=== PATIENT | male | born 1955 | race Caucasian/White ===

== ENCOUNTER 2022-11-19 08:57 | Day surgery (SDC) | payer MEDICARE ==
[~2022-11-19] VITALS: Ht 180.3 cm; Wt 82.2 kg
[2022-11-19] MEDS ORDERED: OMEP40CA21 PO (09:34)
[2022-11-19] MEDS ORDERED: KEYTRUDA IV (09:34)
[2022-11-19 10:00] VITALS: BP 160/95; PULSE 60; RESP 16; TEMP 98.8; O2SAT 98
[2022-11-19 11:15] VITALS: BP 172/104; PULSE 65; RESP 15; O2SAT 99
[2022-11-19 11:25] VITALS: BP_SYST 176; BP_DIAS 176; BP_DIAS 84; BP_DIAS 95; PULSE 65; PULSE 84; RESP 15; RESP 65; O2SAT 97
[2022-11-19 11:34] VITALS: BP 179/91; PULSE 64; RESP 65; O2SAT 98
== END 2022-11-19 11:50 | disposition home or self-care (01) ==
LOC: SSTAY O 08:57
PROVIDERS: ATTEND Radiology Diagnostic Radiology
DX: K91.873 Postprocedural seroma of a digestive system organ or structure following other procedure (principal); M19.90 Unspecified osteoarthritis, unspecified site; Z98.890 Other specified postprocedural states; Z98.1 Arthrodesis status; Z85.72 Personal history of non-Hodgkin lymphomas; Z79.899 Other long term (current) drug therapy; Y83.8 Other surgical procedures as the cause of abnormal reaction of the patient, or of later complication, without mention of misadventure at the time of the procedure
CPT/HCPCS: 49406; 76942

== ENCOUNTER 2022-12-18 08:44 | Day surgery (SDC) | payer MEDICARE ==
[~2022-12-18] VITALS: Ht 180.3 cm; Wt 83.0 kg
[~2022-12-18 08:44] MED LIST: KEYTRUDA IV; OMEP40CA21 PO
[2022-12-18 09:09] VITALS: BP 150/80; PULSE 66; RESP 16; TEMP 98.3; O2SAT 100
[2022-12-18 09:23] VITALS: BP 151/86; PULSE 59; RESP 16; O2SAT 98
[2022-12-18 09:37] VITALS: BP 146/87; PULSE 61; RESP 16; O2SAT 99
== END 2022-12-18 10:00 | disposition home or self-care (01) ==
LOC: SSTAY O 08:44
PROVIDERS: ATTEND Radiology Vascular & Interventional Radiology
DX: K91.89 Other postprocedural complications and disorders of digestive system (principal); M19.90 Unspecified osteoarthritis, unspecified site; Z85.72 Personal history of non-Hodgkin lymphomas; Z79.899 Other long term (current) drug therapy; Z98.890 Other specified postprocedural states; Z98.1 Arthrodesis status; Y83.8 Other surgical procedures as the cause of abnormal reaction of the patient, or of later complication, without mention of misadventure at the time of the procedure
CPT/HCPCS: 10030; 10160; 76942; 87070; 87075; A6258; A6449